=== PATIENT | male | born 1995 | race African-American/Black ===

== ENCOUNTER 2017-10-31 09:36 | Emergency (ER) | payer SELFPAY ==
[2017-10-31] MEDS ORDERED: Piperacillin/Tazobac ADVAN(*) 3.375 GM in NS 0.9% 100 ML* 100 ML IVPB ONE (09:49)
[2017-10-31] MEDS ORDERED: Ketorolac INJ* 30 MG/ML 1 ML VIAL IV ONE (09:49)
[2017-10-31] MEDS ORDERED: NS 0.9% 100 ML* 100 ML ONE (10:04)
[2017-10-31] MEDS ORDERED: diPHENhydraMINE IV* 50 MG/ML 1 ml VIAL (BENADRYL) ONE (10:04)
[2017-10-31] MEDS ORDERED: diPHENhydraMINE IV* 50 MG/ML 1 ml VIAL (BENADRYL) IV ONE (10:06)
[2017-10-31 10:12] LABS: Red Cell Distribution Width 13 % (10.5-15)
[2017-10-31 10:21] LABS: Hematocrit 47 % (42-52); Mean Corpuscular HGB Conc 34 g/dl (31-36); Mean Corpuscular Hemoglobin 31 pg (27-31); Mean Corpuscular Volume 92 fL (80-94); Red Blood Count 5.14 10^6/ul (4.0-5.4); White Blood Count 21.1 10^3/ul (3.5-10.8)
[2017-10-31 10:22] LABS: Add Diff/Slide Review? Slide Review Added; Comments Flag Yes
[2017-10-31 10:48] LABS: Albumin 4.5 g/dL (3.2-5.2); BUN/Creatinine Ratio 7.7 (8-20); C Reactive Protein 104.21 mg/L (< 5.00); Calcium 10.1 mg/dL (8.6-10.3); EGFR African American 98.5 (>60); EGFR Non-African American 76.6 (>60); Globulin 3.4 g/dL (2-4); Potassium 3.7 mmol/L (3.5-5.0); Total Bilirubin 0.7 mg/dL (0.2-1.0); Total Protein 7.9 g/dL (6.4-8.9)
[2017-10-31 10:53] LABS: Immature Granulocytes 1 % (0-9); Neutrophil % 76 % (38-83); RBC Morphology Normal (Normal); Reactive Lymph % 1 % (0-6)
[2017-10-31 10:54] LABS: Mean Platelet Volume 10 um3 (7.4-10.4)
[2017-10-31] MEDS ORDERED: Iohexol 300* (CONTRAST) 10 ML SDV IV ONE (10:57)
--- NOTE | 2017-10-31 12:04 | RAD ---
HISTORY: Dysphagia COMPARISONS: None TECHNIQUE: Multiple contiguous axial CT scans were obtained of the neck after the administration of nonionic intravenous contrast, with coronal and sagittal multiplanar reformations. FINDINGS: BRAIN AND ORBITS: The visualized brain and orbits are normal. PARANASAL SINUSES: The visualized paranasal sinuses are clear. SALIVARY GLANDS: The parotid glands, submandibular glands, sublingual glands are normal. NASAL CAVITY/NASOPHARYNX: There is mild prominence of the adenoids. ORAL CAVITY/OROPHARYNX: There is mild prominence of the lingual tonsils and palatine tonsils. LARYNGEAL APPARATUS/HYPOPHARYNX: The laryngeal apparatus and hypopharynx are normal. UPPER AIRWAY/UPPER ESOPHAGUS: The visualized upper airway and esophagus are normal. LUNG APICES: The lung apices are clear. THYROID GLAND: The thyroid gland is normal. LYMPH NODES: There are prominent upper cervical lymph nodes at the upper limits of normal in size. VASCULATURE: The vasculature is unremarkable. BONES AND SOFT TISSUES: No bone or soft tissue abnormalities are noted. There is straightening of the cervical lordosis. OTHER: None. IMPRESSION: 1. MILD PROMINENCE OF THE LYMPHOID TISSUE OF WALDEYER'S RING. 2. BORDERLINE UPPER CERVICAL LYMPHADENOPATHY.
[2017-10-31 13:02] VITALS: BP 143/65
--- NOTE | 2017-10-31 15:38 | ED ---
Torin Monroy Angela, scribed for Mike Poon MD on 10/31/17 at 0947 . Allergic Reaction/Systemic - HPI Summary HPI Summary: This pt is a 22 y/o male presenting to [facility] c/o swelling of the tongue since last night s/p eating shrimp. Pt states dysphagia, he is able to swallow a little bit but is painful. He denies difficulty breathing or SOB. Pt reports he has an allergy to shrimps and has had a past allergic reaction. 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 Pt denies rash, nausea, vomiting. - History of Current Complaint Hx Obtained From: Patient Onset/Duration: Started hours ago, Still Present Timing: Lasting Hours Severity Currently: Severe Location: Discrete @ - mouth Character: Swelling Associated Signs And Symptoms: Positive: Other: - tongue swelling. Negative: Difficulty Breathing, Nausea, Rash, Vomiting - Allergies/Home Medications Allergies/Adverse Reactions: Allergies Allergy/AdvReac Type Severity Reaction Status Date / Time Shellfish Allergy Allergy Swelling Verified 10/31/17 09:45 Of Face,Lips,& Throat PMH/Surg Hx/FS Hx/Imm Hx Endocrine/Hematology History: Denies: Hx Diabetes Cardiovascular History: Denies: Hx Hypertension Respiratory History: Reports: Hx Asthma - Family History Known Family History: Positive: Cardiac Disease, Hypertension, Diabetes - Social History Alcohol Use: Daily Substance Use Type: Reports: Marijuana Smoking Status (MU): Light Every Day Tobacco Smoker Review of Systems Negative: Fever, Chills ENT: Other - tongue swelling, dysphagia Negative: Shortness Of Breath Negative: Vomiting, Nausea Skin: Negative All Other Systems Reviewed And Are Negative: Yes Physical Exam - Summary Physical Exam Summary: Appearance: The patient is well-nourished in no acute distress and in no acute pain. Skin: The skin is warm and dry and skin color reflects adequate perfusion. HEENT: The head is normocephalic and atraumatic. The pupils are equal and reactive. The conjunctivae are clear and without drainage. Nares are patent and without drainage. Mouth reveals moist mucous membranes and the throat is without erythema and exudate. The external ears are intact. The ear canals are patent and without drainage. The tympanic membranes are intact. The tongue is a little swollen. The lips might be a little swollen, unknown lips at baseline. Neck: the neck is supple with full range of motion and non-tender. There are no carotid bruits. There is no neck vein distension. Respiratory: Chest is non-tender. Lungs are clear to auscultation and breath sounds are symmetrical and equal. Cardiovascular: Heart is regular rate and rhythm. There is no murmur or rub auscultated. There is no peripheral edema and pulses are symmetrical and equal. Abdomen: The abdomen is soft and non-tender. There are normal bowel sounds heard in all four quadrants and there is no organomegaly palpated. Musculoskeletal: There is no back tenderness noted. Extremities are non-tender with full range of motion. There is good capillary refill. There is no peripheral edema or calf tenderness elicited. Neurological: Patient is alert and oriented to person, place and time. The patient has symmetrical motor strength in all four extremities. Cranial nerves are grossly intact. Deep tendon reflexes are symmetrical and equal in all four extremities. Psychiatric: The patient has an appropriate affect and does not exhibit any anxiety or depression. Triage Information Reviewed: Yes Vital Signs On Initial Exam: Initial Vitals Temp Pulse Resp BP Pulse Ox 102.2 F 102 14 139/81 98 10/31/17 09:43 10/31/17 09:43 10/31/17 09:43 10/31/17 09:43 10/31/17 09:43 Vital Signs Reviewed: Yes Diagnostics - Vital Signs Vital Signs Temp Pulse Resp BP Pulse Ox 10/31/17 13:23 99.5 F 96 16 143/65 96 10/31/17 13:00 79 18 143/65 94 10/31/17 12:30 76 15 110/68 96 10/31/17 12:09 99.4 F 10/31/17 12:00 83 16 118/62 96 10/31/17 11:55 117/67 10/31/17 11:39 80 18 94 10/31/17 11:00 83 16 96 10/31/17 10:00 99 19 98 10/31/17 09:44 113 99 10/31/17 09:43 102.2 F 102 14 139/81 98 - Laboratory Lab Results: Lab Results 10/31/17 10/31/17 10/31/17 Range/Units 09:58 09:58 12:17 WBC 21.1 H (3.5-10.8) 10^3/ul RBC 5.14 (4.0-5.4) 10^6/ul Hgb 16.0 (14.0-18.0) g/dl Hct 47 (42-52) % MCV 92 (80-94) fL MCH 31 (27-31) pg MCHC 34 (31-36) g/dl RDW 13 (10.5-15) % Plt Count 133 L (150-450) 10^3/ul MPV 10 (7.4-10.4) um3 Neut % (Auto) 82.1 (38-83) % Lymph % (Auto) 9.2 L (25-47) % [place]estone % (Auto) 7.9 (1-9) % Eos % (Auto) 0.3 (0-6) % Baso % (Auto) 0.5 (0-2) % Absolute Neuts (auto) 17.3 H (1.5-7.7) 10^3/ul Absolute Lymphs (auto) 2.0 (1.0-4.8) 10^3/ul Absolute Monos (auto) 1.7 H (0-0.8) 10^3/ul Absolute Eos (auto) 0.1 (0-0.6) 10^3/ul Absolute Basos (auto) 0.1 (0-0.2) 10^3/ul Absolute Nucleated RBC 0.02 10^3/ul Immature Gran % 1 (0-9) % Neutrophils % 76 (38-83) % Band Neutrophils % 1 (0-8) % Lymphocytes % 10 L (25-47) % Reactive Lymphs % 1 (0-6) % Monocytes % 12 (0-13) % Nucleated RBC % 0.1 Normal RBC Morphology Normal (Normal) Sodium 134 (133-145) mmol/L Potassium 3.7 (3.5-5.0) mmol/L Chloride 100 L (101-111) mmol/L Carbon Dioxide 27 (22-32) mmol/L Anion Gap 7 (2-11) mmol/L BUN 9 (6-24) mg/dL Creatinine 1.17 (0.67-1.17) mg/dL Est GFR ( Amer) 98.5 (>60) Est GFR (Non-Af Amer) 76.6 (>60) BUN/Creatinine Ratio 7.7 L (8-20) Glucose 103 H (70-100) mg/dL Calcium 10.1 (8.6-10.3) mg/dL Total Bilirubin 0.70 (0.2-1.0) mg/dL AST 13 (13-39) U/L ALT 10 (7-52) U/L Alkaline Phosphatase 67 (34-104) U/L C-Reactive Protein 104.21 H (< 5.00) mg/L Total Protein 7.9 (6.4-8.9) g/dL Albumin 4.5 (3.2-5.2) g/dL Globulin 3.4 (2-4) g/dL Albumin/Globulin Ratio 1.3 (1-3) Group A Strep Rapid Positive H (Negative) Result Diagrams: 10/31/17 09:58 10/31/17 09:58 Lab Statement: Any lab studies that have been ordered have been reviewed, and results considered in the medical decision making process. - CT Neck CT CT Interpretation: Positive (See Comments) - IMPRESSION: 1. Mild prominence of the lymphoid tissue of waldeyer's ring. 2. Borderline upper cervical lymphadenopathy. Dr. Poon has reviewed this radiology report. CT Interpretation Completed By: Radiologist Re-Evaluation - Re-Evaluation First Eval Re-Evaluation Time: 13:00 Comment: I reviewed the lab and CT results with the pt. Allergic Reaction Course/Dx - Course Course Of Treatment: Mr. Mcmanus presented with inability to swallow because his throat hurt a lot and felt swollen. It started last night and he took a benadryl because he was worried that it was an allergic reaction. He woke up feeling worse this AM and came in. He had some mild trismus and his posterior pharynx was erythematous. He had some anterior cervicle lymphadenopathy. His WBC was elevated at 21K and strep test was positive. CT was negative for any dramatic swelling and he felt better with medications and was swallowing easier. - Diagnoses Provider Diagnoses: Strep pharyngitis Discharge - Discharge Plan Condition: Stable Disposition: HOME Prescriptions: Penicillin VK TAB* [Penicillin VK 250 mg Tab*] 500 mg PO QID #40 tab traMADol TAB* [Ultram*] 25 mg PO Q6HR PRN #20 tab MDD 4 PRN Reason: Pain Patient Education Materials: Pharyngitis (ED), Strep Throat (ED) Referrals: No Primary Care Phys,NOPCP [Primary Care Provider] - [facility] [Outside] Additional Instructions: Please follow up with your primary care provider in 2-3 days if your symptoms don't improve. RETURN TO THE ED FOR ANY WORSENING SYMPTOMS. The documentation as recorded by the Torin mckeon Angela accurately reflects the service I personally performed and the decisions made by me, Mike Poon MD.
== END 2017-10-31 13:23 | disposition home or self-care (01) ==
LOC: ED 09:36
DX: J02.0 Streptococcal pharyngitis (principal); J45.909 Unspecified asthma, uncomplicated; Z72.0 Tobacco use
CPT/HCPCS: 36415; 70491; 80053; 85025; 86140; 87040; 87651; 99283; J1200; J1885; J2543; Q9967

== ENCOUNTER 2019-02-06 07:55 | Emergency (ER) | payer SELFPAY ==
[2019-02-06] MEDS ORDERED: NS 0.9% 1000 ML** 1,000 ML IV ONE (07:57)
[2019-02-06] MEDS ORDERED: Morphine 10 MG/ML VIAL (1 ml) IV ONE (07:57)
[2019-02-06] MEDS ORDERED: Ketorolac INJ* 30 MG/ML 1 ML VIAL IV ONE (07:57)
[2019-02-06] MEDS ORDERED: Ondansetron INJ* 2 MG/ML VIAL IV ONE (07:58)
[2019-02-06 08:28] LABS: ABS Basophils 0 10^3/ul (0-0.2); ABS Eosinophils 0.1 10^3/ul (0-0.6); ABS Lymphocytes 1.8 10^3/ul (1.0-4.8); ABS Monocytes 0.8 10^3/ul (0-0.8); ABS Neutrophils 11.4 10^3/ul (1.5-7.7); ABS Nucleated RBC 0 10^3/ul; Eosinophil % 0.9 %; Hematocrit 43 % (36-46); Hemoglobin 14.4 g/dL (14.0-18.0); Lymphocyte % 12.4 %; Mean Corpuscular HGB Conc 33 g/dL (31-36); Mean Corpuscular Hemoglobin 30 pg (27-31); Mean Corpuscular Volume 91 fL (80-94); Mean Platelet Volume 9.3 fL (7.4-10.4); Nucleated Red Blood Cells % 0.1; Platelet Count 185 10^3/uL (150-450); Red Blood Count 4.75 10^6 /uL (4.18-5.48); Red Cell Distribution Width 13 % (10.5-15); White Blood Count 14.1 10^3/uL (3.5-10.8)
[2019-02-06 08:50] LABS: ALT 18 U/L (7-52); AST 17 U/L (13-39); Albumin 4.3 g/dL (3.2-5.2); Albumin/Globulin Ratio 1.8 (1-3); Alkaline Phosphatase 63 U/L (34-104); Anion Gap 10 mmol/L (2-11); BUN/Creatinine Ratio 10.9 (8-20); Blood Urea Nitrogen 15 mg/dL (6-24); C Reactive Protein 2.02 mg/L (<8.01); CO2 Carbon Dioxide 22 mmol/L (22-32); Calcium 9.4 mg/dL (8.6-10.3); Chloride 109 mmol/L (101-111); EGFR Non-African American 62.8 (>60); Globulin 2.4 g/dL (2-4); Glucose 137 mg/dL (70-100); Magnesium 1.7 mg/dL (1.9-2.7); Potassium 3.7 mmol/L (3.5-5.0); Sodium 141 mmol/L (135-145); Total Protein 6.7 g/dL (6.4-8.9)
--- NOTE | 2019-02-06 10:56 | ED ---
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 This associated with nausea and vomiting. He states he has never had anything like this before. Strong family history of kidney stones. He denies any urinary symptoms or gross hematuria. He denies any fevers, sweats, chills. Symptoms are not worse with movement or better with rest. - History of Current Complaint Chief Complaint: EDFlankPain Stated Complaint: ABD PAIN/POSS KIDNEY STONE PER EMS Time Seen by Provider: 02/06/19 07:57 Hx Obtained From: Patient Onset/Duration: Sudden Onset Timing: Constant Severity Initially: Severe Severity Currently: None Pain Intensity: 10 Pain Scale Used: 0-10 Numeric Location: Flank Radiates: Yes Radiates to: LLQ Character: Cramping, Tearing Aggravating Factor(s): Nothing Alleviating Factor(s): Nothing Associated Signs And Symptoms: Positive: Negative, Nausea, Vomiting - Risk Factors Testicular Torsion: Negative Cardiac Risk Factors: Negative - Allergies/Home Medications Allergies/Adverse Reactions: Allergies Allergy/AdvReac Type Severity Reaction Status Date / Time shellfish derived Allergy Swelling Verified 02/06/19 08:04 Of Face,Lips,& Throat PMH/Surg Hx/FS Hx/Imm Hx Previously Healthy: Yes Endocrine/Hematology History: Denies: Hx Diabetes Cardiovascular History: Denies: Hx Hypertension Respiratory History: Reports: Hx Asthma - Immunization History Hx Pertussis Vaccination: No Immunizations Up to Date: Yes Infectious Disease History: No Infectious Disease History: Denies: Traveled Outside the [place] in Last 30 Days - Family History Known Family History: Positive: Cardiac Disease, Hypertension, Diabetes - Social History Occupation: Unemployed Lives: With Family Alcohol Use: Daily Hx Substance Use: Yes Substance Use Type: Reports: Marijuana Substance Use Comment - Amount & Last Used: daily Hx Tobacco Use: Yes Smoking Status (MU): Former Smoker Review of Systems Constitutional: Negative Negative: Fever, Chills, Fatigue, Skin Diaphoresis Negative: Palpitations, Chest Pain Negative: Shortness Of Breath, Cough Positive: Abdominal Pain, Vomiting, Nausea. Negative: Diarrhea Genitourinary: Negative Positive: no symptoms reported, see HPI. Negative: burning, dysuria, discharge , hematuria, incontinence Negative: Arthralgia, Myalgia Neurological: Negative All Other Systems Reviewed And Are Negative: Yes Physical Exam Triage Information Reviewed: Yes Vital Signs On Initial Exam: Initial Vitals Temp Pulse Resp BP Pulse Ox 97 F 55 16 108/80 96 02/06/19 07:58 02/06/19 07:58 02/06/19 07:58 02/06/19 07:58 02/06/19 07:58 Vital Signs Reviewed: Yes Appearance: Positive: Well-Appearing, Well-Nourished Skin: Positive: Warm, Skin Color Reflects Adequate Perfusion Head/Face: Positive: Normal Head/Face Inspection Eyes: Positive: EOMI, Conjunctiva Clear Neck: Positive: Supple, No Lymphadenopathy Respiratory/Lung Sounds: Positive: Clear to Auscultation, Breath Sounds Present Cardiovascular: Positive: RRR, Pulses are Symmetrical in both Upper and Lower Extremities Abdomen Description: Positive: CVA Tenderness (L) Bowel Sounds: Positive: Present Musculoskeletal: Positive: Normal, Strength/ROM Intact Neurological: Positive: Normal, Sensory/Motor Intact - Drummond Coma Scale Best Eye Response: 4 - Spontaneous Best Motor Response: 6 - Obeys Commands Best Verbal Response: 5 - Oriented Coma Scale Total: 15 Diagnostics - Vital Signs Vital Signs Temp Pulse Resp BP Pulse Ox 02/06/19 10:00 57 100 02/06/19 09:35 60 112/59 100 02/06/19 09:05 52 84/44 100 02/06/19 09:00 56 99 02/06/19 08:34 52 127/75 100 02/06/19 08:09 16 02/06/19 08:06 52 108/80 100 02/06/19 08:03 61 100 02/06/19 07:58 97 F 55 16 108/80 96 - Laboratory Lab Results: Lab Results 02/06/19 02/06/19 02/06/19 Range/Units 08:20 08:20 08:20 WBC 14.1 H (3.5-10.8) 10^3/uL RBC 4.75 (4.18-5.48) 10^6 /uL Hgb 14.4 (14.0-18.0) g/dL Hct 43 (36-46) % MCV 91 (80-94) fL MCH 30 (27-31) pg MCHC 33 (31-36) g/dL RDW 13 (10.5-15) % Plt Count 185 (150-450) 10^3/uL MPV 9.3 (7.4-10.4) fL Neut % (Auto) 80.9 % Lymph % (Auto) 12.4 % Knott % (Auto) 5.5 % Eos % (Auto) 0.9 % Baso % (Auto) 0.3 % Absolute Neuts (auto) 11.4 H (1.5-7.7) 10^3/ul Absolute Lymphs (auto) 1.8 (1.0-4.8) 10^3/ul Absolute Monos (auto) 0.8 (0-0.8) 10^3/ul Absolute Eos (auto) 0.1 (0-0.6) 10^3/ul Absolute Basos (auto) 0 (0-0.2) 10^3/ul Absolute Nucleated RBC 0 10^3/ul Nucleated RBC % 0.1 Sodium 141 (135-145) mmol/L Potassium 3.7 (3.5-5.0) mmol/L Chloride 109 (101-111) mmol/L Carbon Dioxide 22 (22-32) mmol/L Anion Gap 10 (2-11) mmol/L BUN 15 (6-24) mg/dL Creatinine 1.38 H (0.67-1.17) mg/dL Est GFR ( Amer) 76.0 (>60) Est GFR (Non-Af Amer) 62.8 (>60) BUN/Creatinine Ratio 10.9 (8-20) Glucose 137 H (70-100) mg/dL Lactic Acid 3.3 H* (0.5-2.0) mmol/L Calcium 9.4 (8.6-10.3) mg/dL Magnesium 1.7 L (1.9-2.7) mg/dL Total Bilirubin 0.30 (0.2-1.0) mg/dL AST 17 (13-39) U/L ALT 18 (7-52) U/L Alkaline Phosphatase 63 (34-104) U/L C-Reactive Protein 2.02 (<8.01) mg/L Total Protein 6.7 (6.4-8.9) g/dL Albumin 4.3 (3.2-5.2) g/dL Globulin 2.4 (2-4) g/dL Albumin/Globulin Ratio 1.8 (1-3) Lipase < 10 L (11.0-82.0) U/L Result Diagrams: 02/06/19 08:20 02/06/19 08:20 Lab Statement: Any lab studies that have been ordered have been reviewed, and results considered in the medical decision making process. Abdominal Pain Male Course/Dx - Course Course Of Treatment: Physical examination, patient is diaphoretic with nausea and vomiting. On arrival to the ED, he is given morphine 6 mg, Toradol 30 mg, Zofran 4 mg and normal saline [address] abdomen and pelvis obtained which shows no acute findings. Approximately 30 minutes after arrival, he states his pain decreased from a 10/10 to a 0/10. He offers no complaints at this time. Urine obtained which shows 3+ RBCs, consistent with possibly passing a stone. - Diagnoses Provider Diagnoses: Kidney stone on left side Discharge - Sign-Out/Discharge Documenting (check all that apply): Patient Departure Patient Received Moderate/Deep Sedation with Procedure: No - Discharge Plan Condition: Stable Disposition: HOME Prescriptions: Ketorolac TAB * [Toradol TAB *] 10 mg PO Q6H #16 tab Ketorolac TAB * [Toradol TAB *] 10 mg PO Q6H #16 tab Ondansetron ODT TAB* [Zofran 4 MG Odt TAB*] 4 mg PO Q6H PRN #12 tab.odt MDD 4 PRN Reason: Nausea Ondansetron ODT TAB* [Zofran 4 MG Odt TAB*] 4 mg PO Q6H PRN #12 tab.odt MDD 4 PRN Reason: Nausea Patient Education Materials: Kidney Stones (ED) Referrals: No Primary Care Phys,NOPCP [Primary Care Provider] - Additional Instructions: I am giving you information regarding kidney stones Your CT scan did not reveal any stone However, based on your symptoms on arrival - you likely passed a stone Moist heat to the area may help Take Toradol 10mg tabs up to four times daily for any back pain Zofran up to four times daily for nausea if you develop any worsening or changing symptoms, return to the ED - Billing Disposition and Condition Condition: STABLE Disposition: Home
[2019-02-06 11:03] VITALS: BP 124/59
[2019-02-06 11:11] LABS: Urine Appearance Clear; Urine Bacteria Absent (Absent); Urine Bilirubin Negative (Negative); Urine Blood 2+ (Negative); Urine Color Yellow; Urine Glucose Negative (Negative); Urine Ketones Negative (Negative); Urine Nitrite Negative (Negative); Urine Protein Negative (Negative); Urine Red Blood Cell 3+(>10/hpf) (Absent); Urine Specific Gravity 1.016 (1.010-1.030); Urine Urobilinogen Negative (Negative); Urine White Blood Cell Absent (Absent)
== END 2019-02-06 11:02 | disposition home or self-care (01) ==
LOC: ED 07:55
DX: N20.0 Calculus of kidney (principal); R11.2 Nausea with vomiting, unspecified; Z91.013 Allergy to seafood; Z87.891 Personal history of nicotine dependence
CPT/HCPCS: 36415; 74176; 80053; 81003; 81015; 83605; 83690; 83735; 85025; 86140; 96374; 96375; 99283; J1885; J2270; J2405

== ENCOUNTER 2019-09-12 10:30 | Emergency (ER) | payer SELFPAY ==
[2019-09-12] MEDS ORDERED: Ondansetron INJ* 2 MG/ML VIAL IV ONE (10:38)
[2019-09-12] MEDS ORDERED: Pantoprazole IV* 40 MG IV ONE (10:38)
[2019-09-12] MEDS ORDERED: NS 0.9% 1000 ML** 1,000 ML IV ONE (10:38)
--- NOTE | 2019-09-12 10:52 | ED ---
GI/ HPI - HPI Summary HPI Summary: Pt is a 24 y/o M presenting to the ED brought in by EMS for GI issues. Pt states he was celebrating drinking last night when he began vomiting and he has since not stopped vomiting. He was vomiting yellow last night, but it turned into blood after about the third episode of emesis. He reports nausea, diffuse abd pain, and chest pain. He denies SOB and diarrhea. He notes hx of kidney stones and marijuana use. - History of Current Complaint Chief Complaint: EDAbdPain Time Seen by Provider: 09/12/19 10:33 Stated Complaint: VOMITING BLOOD PER EMS Hx Obtained From: Patient Onset/Duration: Started Hours Ago, Still Present Timing: Constant, Lasting Hours Severity: Moderate Current Severity: Severe Pain Intensity: 10 Location of Pain: Diffuse Associated Signs and Symptoms: Positive: Nausea, Vomiting, Abdominal Pain, Chest Pain. Negative: Diarrhea Aggravating Factor(s): Nothing Alleviating Factor(s): Nothing - Allergy/Home Medications Allergies/Adverse Reactions: Allergies Allergy/AdvReac Type Severity Reaction Status Date / Time shellfish derived Allergy Swelling Verified 02/06/19 08:04 Of Face,Lips,& Throat PMH/Surg Hx/FS Hx/Imm Hx Previously Healthy: Yes Endocrine/Hematology History: Denies: Hx Diabetes Cardiovascular History: Denies: Hx Hypertension Respiratory History: Reports: Hx Asthma History: Reports: Hx Kidney Stones Infectious Disease History: No Infectious Disease History: Denies: Traveled Outside the [place] in Last 30 Days - Family History Known Family History: Positive: Cardiac Disease, Hypertension, Diabetes - Social History Alcohol Use: Daily Hx Substance Use: Yes Substance Use Type: Reports: Marijuana Substance Use Comment - Amount & Last Used: daily Hx Tobacco Use: Yes Smoking Status (MU): Former Smoker Review of Systems Positive: Chest Pain Negative: Shortness Of Breath Positive: Abdominal Pain, Vomiting, Nausea. Negative: Diarrhea All Other Systems Reviewed And Are Negative: Yes Physical Exam - Summary Physical Exam Summary: Constitutional: Well-developed, Well-nourished, Alert. (-) Distressed Skin: Warm, Dry HENT: Normocephalic; Atraumatic Eyes: Conjunctiva normal Neck: Musculoskeletal ROM normal neck. (-) JVD, (-) Stridor, (-) Nuchal rigidity Cardio: Rhythm regular, rate normal, Heart sounds normal; Intact distal pulses; Radial pulses are 2+ and symmetric. (-) Murmur Pulmonary/Chest wall: Effort normal. (-) Respiratory distress, (-) Wheezes, (-) Rales Abd: Soft, mild diffuse tenderness, (-) Distension, (-) Guarding, (-) Rebound Musculoskeletal: (-) Edema Lymph: (-) Cervical adenopathy Neuro: Alert, Oriented x3 Psych: Mood and affect Normal Triage Information Reviewed: Yes Vital Signs On Initial Exam: Initial Vitals Temp Pulse Resp BP Pulse Ox 98.4 F 72 16 120/70 100 09/12/19 10:34 09/12/19 10:34 09/12/19 10:34 09/12/19 10:34 09/12/19 10:34 Vital Signs Reviewed: Yes Procedures - Sedation Patient Received Moderate/Deep Sedation with Procedure: No Diagnostics - Vital Signs Vital Signs Temp Pulse Resp BP Pulse Ox 09/12/19 10:34 98.4 F 72 16 120/70 100 - Laboratory Result Diagrams: 09/12/19 11:12 09/12/19 11:12 Lab Statement: Any lab studies that have been ordered have been reviewed, and results considered in the medical decision making process. - Radiology CXR Radiology Interpretation Completed By: Radiologist Summary of Radiographic Findings: No airspace opacification. ED physician has reviewed this report. - EKG 1049 Cardiac Rate: Bradycardia - 58bpm EKG Rhythm: Sinus Bradycardia ST Segment: Normal Ectopy: None Summary of EKG Findings: An EKG at 1049 reveals sinus bradycardia at 58bpm with nml axis, nml intervals. No STEMI. No acute changes. ED physician has reviewed and interpreted this EKG. Re-Evaluation - Re-Evaluation 1st re-eval Re-Evaluation Time: 12:36 Change: Improved Comment: Pt ate most of a turkey sandwich. Feeling improved. GIGU Course/Dx - Course Course Of Treatment: 24-year-old male who presents with reported coffee-ground emesis after alcohol use. Physical exam w mild abdominal tenderness, otherwise unremarkable. No episodes of emesis in emergency department. Hemoglobin stable. Given Protonix, IV fluids, Zofran. Repeat abdominal exam soft, NT. We 'll give GI cocktail and reassess. Chest x-ray w/o evidence of Boerhaave's or esophageal perforation. - Diagnoses Provider Diagnoses: Hematemesis, Gastritis Discharge ED - Sign-Out/Discharge Documenting (check all that apply): Patient Departure - Discharge Plan Condition: Stable Disposition: HOME Patient Education Materials: Gastritis (ED), Hematemesis (ED) Referrals: [facility] [Outside] Additional Instructions: You were seen in the emergency department for vomiting and abdominal pain. Your labs and show any cause for pain. Please follow with our sales agent. If any studies were not completed at the time of discharge you will be called with the relevant results. Please follow up with your primary care doctor in next 2-3 days and return to emergency department for worsening abdominal pain, vomiting blood, or concerning symptoms. It was a pleasure taking care of you today. - Billing Disposition and Condition Condition: STABLE Disposition: Home - Attestation Statements Document Initiated by Calvinibe: Yes Documenting Scribe: Cherise Pete Provider For Whom Gabriel is Documenting (Include Credential): Taya Murrieta MD. Scribe Attestation: Cherise Monroy, nannetteed for Taya Murrieta MD. on 09/12/19 at 1243. Scribe Documentation Reviewed: Yes Provider Attestation: The documentation as recorded by the calvinibeCherise accurately reflects the service I personally performed and the decisions made by Taya zambrano MD. Status of Scribe Document: Viewed
[2019-09-12 11:20] LABS: ABS Basophils 0.1 10^3/ul (0-0.2); ABS Lymphocytes 0.8 10^3/ul (1.0-4.8); ABS Neutrophils 9.7 10^3/ul (1.5-7.7); Eosinophil % 0.1 %; Hematocrit 45 % (42-52); Hemoglobin 15.4 g/dL (14.0-18.0); Lymphocyte % 6.8 %; Mean Corpuscular HGB Conc 34 g/dL (31-36); Mean Corpuscular Hemoglobin 31 pg (27-31); Mean Corpuscular Volume 91 fL (80-94); Platelet Count 203 10^3/uL (150-450); Red Blood Count 4.95 10^6 /uL (4.18-5.48); Red Cell Distribution Width 13 % (10-15); White Blood Count 11.6 10^3/uL (3.5-10.8)
[2019-09-12 11:29] LABS: INR 1.05 (0.82-1.09)
[2019-09-12 11:42] LABS: Albumin/Globulin Ratio 1.5 (1-3); BUN/Creatinine Ratio 10.1 (8-20); Calcium 10.3 mg/dL (8.6-10.3); EGFR African American 98.9 (>60); EGFR Non-African American 81.8 (>60); Globulin 3.3 g/dL (2-4); Total Bilirubin 0.5 mg/dL (0.2-1.0); Total Protein 8.3 g/dL (6.4-8.9)
[2019-09-12] MEDS ORDERED: Lidocaine 2% VISCOUS* 15 ML UDC PO ONE (11:47)
[2019-09-12] MEDS ORDERED: Al Hydrox/Mg Hydrox/Simet LIQ* 30 ML UDC PO ONE (11:47)
[2019-09-12 12:55] VITALS: BP 137/86
== END 2019-09-12 12:55 | disposition home or self-care (01) ==
LOC: ED 10:30
DX: K92.0 Hematemesis (principal); K29.70 Gastritis, unspecified, without bleeding; Z87.891 Personal history of nicotine dependence
CPT/HCPCS: 36415; 71046; 80053; 84484; 85025; 85610; 93005; 96361; 96374; 96375; 99283; A9270-GY; J2405